=== PATIENT | male | born 1960 | race Caucasian/White ===

== ENCOUNTER 2021-09-28 09:46 | Emergency (ER) | payer OTHER, SELFPAY ==
[~2021-09-28] VITALS: Ht 188 cm; Wt 126.1 kg
[2021-09-28 09:50] VITALS: BP_SYST 160
[2021-09-28 10:39] LABS: BASOPHILS % (AUTO) 0.3 % (0.0-2.0); EOSINOPHILS # (AUTO) 0.2 K/uL (0.0-0.4); EOSINOPHILS % (AUTO) 2.5 % (0.0-4.0); HEMATOCRIT 43.3 % (36-54); HEMOGLOBIN 14.4 g/dL (14.0-18.0); LYMPHOCYTES # (AUTO) 1.6 K/uL (1.0-5.5); MEAN CORPUSCULAR HEMOGLOBIN 27 pg (27-31); MEAN CORPUSCULAR HGB CONC 33 % (32-36); MEAN CORPUSCULAR VOLUME 82 fL (79.0-98.0); MONOCYTES # (AUTO) 0.4 K/uL (0.0-1.0); MONOCYTES % (AUTO) 4.6 % (1.7-9.3); NEUTROPHILS # (AUTO) 6.7 K/uL (1.8-7.7); NEUTROPHILS % (AUTO) 74.6 % (40.0-70.0); PLATELET COUNT (AUTO) 262 K/uL (130-430); RED CELL DISTRIBUTION WIDTH 14.3 % (9.0-15.0)
[2021-09-28 11:01] LABS: CALCIUM 8.5 mg/dL (8.4-11.0); CREATININE 0.91 mg/dL (0.55-1.30); POTASSIUM 3.5 mmol/L (3.5-5.1)
[2021-09-28 11:10] LABS: ALBUMIN 3.9 g/dL (3.4-4.8); TOTAL BILIRUBIN 0.6 mg/dL (0.0-1.0)
[2021-09-28] MEDS ORDERED: LIP40 PO (11:16)
[2021-09-28] MEDS ORDERED: ASPI-1457 PO (11:16)
[2021-09-28] MEDS ORDERED: SERT25TA PO (11:16)
[2021-09-28] MEDS ORDERED: LISI1TAB55 PO (11:16)
[2021-09-28] MEDS ORDERED: CARV3.1246 PO (11:16)
[2021-09-28] MEDS ORDERED: FUROSEMIDE 40 MG/4 ML VIAL IVP ONE ×2 (13:00)
[2021-09-28 14:59] VITALS: BP_SYST 140
== END 2021-09-28 15:00 | disposition home or self-care (01) ==
LOC: SED 09:46
DX: I50.9 Heart failure, unspecified (principal); Z79.899 Other long term (current) drug therapy; Z20.822 Contact with and (suspected) exposure to COVID-19
CPT/HCPCS: 36415; 71045; 80053; 81002; 82962; 83880; 84484; 85025; 87426; 93005; 96374; 99285; J1940